=== PATIENT | male | born 1955 | race Caucasian/White ===

== ENCOUNTER 2017-03-26 05:46 | Day surgery (SDC) | payer MEDICARE ==
[2017-03-26] MEDS ORDERED: Lactated Ringers 1,000 ML IV ONE ×2 (06:07→08:16)
[2017-03-26] MEDS ORDERED: Lactated Ringers 1,000 ML IV SCH (06:30)
[2017-03-26] MEDS ORDERED: Versed 2 MG/2 ML Injection IV ONE (08:00)
[2017-03-26] MEDS ORDERED: DIPRIVAN 200 MG/20 ML IV ONE (08:00)
[2017-03-26 08:01] LABS: ANION GAP 16.2 MEQ/L (5-15); Carbon Dioxide 22.9 mEq/L (21-32); Potassium 3.9 mEq/L (3.5-5.1)
[2017-03-26 08:56] VITALS: BP 114/64; PULSE 63; O2SAT 96
--- NOTE | 2017-03-26 11:23 | OP ---
SURGERY DATE/TIME: 03/26/201724 PREOPERATIVE DIAGNOSIS: Small polyp in the descending colon and scattered diverticula. POSTOPERATIVE DIAGNOSIS: Small polyp in the descending colon and scattered diverticula. PROCEDURE: Colonoscopy with biopsy. SURGEON: Dr. Wright. ANESTHESIA: Medications given by anesthesia department. HISTORY: The patient is a 61 year-old white male patient presenting now for screening colonoscopy. He was appraised of the risks of the procedure including the risk of perforation, phlebitis, untoward reaction to medication, bleeding and missed lesions. The patient verbalized his understanding and desired to have the procedure performed. DESCRIPTION OF PROCEDURE: The patient was given the medications by the anesthesia department. He had continuous pulse oximetry, ECG monitoring, intermittent blood pressure monitoring and tidal CO2 monitoring during the examination. He was placed in the left lateral decubitus position. A digital rectal examination was performed and revealed normal anal sphincter tone and no masses and normal prostate. The flexible Olympus pediatric colonoscope was used to intubate the rectum. A view of the colon was developed sequentially to the cecum. Upon insertion and withdrawal there was noted one small polyp in the descending colon near the sigmoid colon this was biopsied multiple times using passes of cold biopsy forceps to destroy the lesion. Upon insertion and withdrawal including retroflex view in the rectum there was noted a few scattered diverticula as well. No other mucosal lesions were encountered. The scope was removed from the patient who tolerated the procedure well and was sent back to OP recovery in good condition. The prep was noted to be fair to good.
== END 2017-03-26 09:07 | disposition home or self-care (01) ==
LOC: SDC 05:46
PROVIDERS: ATTEND Family Medicine
PROC: 0DBM8ZX Excision of Descending Colon, Via Natural or Artificial Opening Endoscopic, Diagnostic (ICD-10-PCS; principal; 2017-03-26)
DX: D12.4 Benign neoplasm of descending colon (principal); K57.90 Diverticulosis of intestine, part unspecified, without perforation or abscess without bleeding; Z12.11 Encounter for screening for malignant neoplasm of colon; E78.5 Hyperlipidemia, unspecified
CPT/HCPCS: 00810; 36415; 80048; 80061; 83721; 88305; J2250; J2704

== ENCOUNTER 2020-04-06 05:49 | Day surgery (SDC) | payer MEDICARE ==
[2020-04-06] MEDS ORDERED: Lactated Ringers 1,000 ML IV SCH (06:30)
[2020-04-06] MEDS ORDERED: DIPRIVAN 200 MG/20 ML IV ONE (07:15)
[2020-04-06] MEDS ORDERED: Ketamine HCl 50 MG/ML ONE (07:16)
[2020-04-06 09:08] VITALS: O2SAT 97
[2020-04-06 09:10] VITALS: BP 110/53; PULSE 61
--- NOTE | 2020-04-06 12:45 | OP ---
SURGERY DATE/TIME: 04/06/2020 0729 PREOPERATIVE DIAGNOSIS: History of colon polyps. POSTOPERATIVE DIAGNOSIS: Ascending colon sessile polyp and also sessile polyp in the sigmoid colon and mild sigmoid diverticulosis. PROCEDURE: Colonoscopy with cold forceps biopsy and cold snare polypectomy removal of the polyp in the sigmoid colon. SURGEON: Dr. Wright. ANESTHESIA: MAC. Medications given by anesthesia department. HISTORY: The patient is a 64 year old white male presenting now for endoscopic evaluation. He reports he had previous colonoscopy with colon polyps removed three years ago. The patient now represents for further evaluation. He was reappraised of the risks of the procedure including the risk of perforation, phlebitis, untoward reaction to medication, bleeding and missed lesions. The patient verbalized his understanding and desired to have the procedure performed. DESCRIPTION OF PROCEDURE: The patient was given the medications by the anesthesia department. He had continuous pulse oximetry, ECG monitoring, intermittent blood pressure monitoring and tidal CO2 monitoring during the examination. He was placed in the left lateral decubitus position. A digital rectal examination was performed and revealed normal anal sphincter tone, no masses and normal prostate. The flexible Olympus pediatric colonoscope was used to intubate the rectum. A view of the colon was developed sequentially to the cecum as identified by the appendiceal orifice and ileocecal valve. Upon insertion and withdrawal was noted a small, subtle what appeared to be sessile lesion in the ascending colon which was biopsied using cold biopsy technique to determine whether there was any adenomatous change. There was another polyp noted just slightly pedunculated measuring approximately 1 cm in size in the sigmoid colon this was removed using the polypectomy snare and cold technique. The fragment was retrieved for pathologic evaluation. There was also noted to be mild sigmoid diverticulosis. No other mucosal lesions were encountered. The scope was removed from the patient who tolerated the procedure well and was sent back to OP recovery in good condition. The prep was noted to be fair to good.
== END 2020-04-06 08:55 | disposition home or self-care (01) ==
LOC: SDC 05:49
PROVIDERS: ATTEND Family Medicine
DX: Z09 Encounter for follow-up examination after completed treatment for conditions other than malignant neoplasm (principal); Z86.010 Personal history of colon polyps; K57.30 Diverticulosis of large intestine without perforation or abscess without bleeding; D12.5 Benign neoplasm of sigmoid colon; D12.2 Benign neoplasm of ascending colon
CPT/HCPCS: 88305; J2704